=== PATIENT | female | born 2000 | race Two or more races ===

== ENCOUNTER 2021-02-28 14:38 | Emergency (ER) | payer OTHER ==
[~2021-02-28] VITALS: Ht 167.6 cm; Wt 62.4 kg
[2021-02-28 14:39] VITALS: BP 126/81
== END 2021-02-28 18:45 | disposition left against medical advice (07) ==
LOC: M ED 14:38
DX: Z53.21 Procedure and treatment not carried out due to patient leaving prior to being seen by health care provider (principal)